=== PATIENT | female | born 1945 | race Caucasian/White ===

== ENCOUNTER → 2016-11-11 | Outpatient (CLI) | payer OTHER ==
--- NOTE | ~2016-11-11 | CNG ---
[facility] [place] [address] CYTO-NONGYN REPORT PROCEDURE Name: ZANE MAS Room #: REG [facility] Esthela.#: [id number] Admission: 11/11/16 Date of : 47 Discharge: Report #: [id number] Path Case #: [id number] CYTOPATHOLOGY REPORT COLLECTION DATE: 11/11/2016 RECEIVED DATE: 11/11/2016 SUBMITTING PHYS: Dr. Henry Singleton OTHER PHYS: Dr. Vladimir Mojica CLINICAL HISTORY: Abnormal CT. SPECIMEN(S) RECEIVED: A.Bronchoalveolar lavage, LLL * * * * * * * * * * * * FINAL DIAGNOSIS: A. Lung, LLL, Bronchoalveolar lavage: - No malignant cells identified. - Reactive bronchial epithelial cells and alveolar macrophages identified in a background of marked acute inflammation. PATHOLOGIST: Carola Britton M.D. REPORT ELECTRONICALLY SIGNED BY: Carola Britton M.D. DATE/TIME: 11/12/2016 16:28 * * * * * * * * * * * * GROSS PATHOLOGY: A. Bronchoalveolar lavage, LLL: The specimen is submitted unfixed, labeled "Zane Mas". Received by the Cytology Department is 15 mL of cloudy white fluid. One ThinPrep slide was prepared. (clt 11.11.2016) WATER SUPPLY ENGINEER(S): THOMAS Stearns([facility]) INITIAL CPT CODE(S): A; 55550 Professional services performed by [facility] at [facility] [address], [place] [address] Technical services performed by [facility] at [address] [place] [address]., [address], [place] [address]. [facility] [address] [place] [address], [facility] [address] [place], [place] [id number] [place] [address] [place] [address] CYTO-NONGYN REPORT PROCEDURE Name: ZANE MAS Room #: REG [facility] Esthela.#: [id number] Admission: 11/11/16 Date of : 47 Discharge: Report #: [id number] Path Case #: [id number] PHONE: [phone] DIRECTOR: Pierre Cerda M.D. * * * END OF REPORT * * *
--- NOTE | ~2016-11-11 | P ---
[facility] [place] [address] PROCEDURE REPORT Name: ZANE MAS Room #: REG [facility]#: [id number] Admission: 11/11/16 Attend Phys: Henry Singleton MD Discharge: Date of : 47 Report #: [id number] THIS REPORT FOR: //name// CC: Vladimir Carlin MD DATE OF SERVICE: 11/11/2016 PROCEDURE: Fiberoptic bronchoscopy and bronchial lavage in the left lower lobe. INDICATION: Persistent basilar pulmonary infiltrates, tree-in-bud pattern, ASA classification class 2. PROCEDURE NOTATION: After discussing risks, benefits of planned procedure with the patient, she desired to proceed. After obtaining informed consent, the patient was brought to the ICU room 237 where she was placed on continuous cardiopulmonary monitoring and supplemental oxygen. She was then given 4% lidocaine nebulized to anesthetize the upper respiratory tract. She then received conscious sedation, a total of 3 mg of Versed were titrated during the procedure to provide adequate sedation. Once complete, bronchoscope was passed through an oral biteblock until the vocal cords were visualized. 1% lidocaine was instilled in the vocal cords to provide topical anesthesia. The bronchoscope was then passed in the trachea, 1% lidocaine was instilled in the tracheobronchial tree bilaterally to provide topical anesthesia. Once complete, airways were surveyed. FINDINGS: Mainstem, lobar, segmental and subsegmental bronchi were all explored and appeared patent with no significant anatomic variation or disease. However, there was diffuse thick secretions predominantly in the lower lobes bilaterally. There appeared to be extensive mucous plugging and secretions in the left lower lobe. This was underwent a bronchioalveolar lavage. The patient desaturated during the procedure required high flow oxygen and the procedure was aborted after bronchioalveolar lavage. The patient otherwise tolerated well, recovered relatively quickly and procedure was completed. IMPRESSION: Pulmonary infiltrates, worrisome for persistent infectious process with extensive secretions in the lower lobe, status post bronchioalveolar lavage in the left lower lobe. PLAN: Await microbiologic tests. By: [id number] Henry Singleton MD /nt
== END ==
LOC: CATH 08:37
DX: J98.01 Acute bronchospasm (principal)